=== PATIENT | female | born 1965 | race Caucasian/White ===

== ENCOUNTER 2016-10-26 12:02 | Day surgery (SDC) | payer OTHER ==
[~2016-10-26] VITALS: Ht 165.1 cm; Wt 85.2 kg
[2016-10-26 13:01] VITALS: BP 109/87; PULSE 91; TEMP 98.1
[2016-10-26] MEDS ORDERED: ZESTRIL 10MG10 MG PO (13:10)
[2016-10-26] MEDS ORDERED: MEVACOR40 MG PO (13:11)
[2016-10-26] MEDS ORDERED: TAMOXIFEN CITRA20 MG PO (13:11)
[2016-10-26] MEDS ORDERED: LEXAPRO 5MG5 MG PO (13:11)
[2016-10-26] MEDS ORDERED: MASON NATURAL1200 MG PO (13:12)
[2016-10-26] MEDS ORDERED: COLACE 100100 MG/CAP PO (13:12)
[2016-10-26] MEDS ORDERED: AMBIEN 5MG TABLE5 MG PO (13:13)
[2016-10-26] MEDS ORDERED: MULTIPLE VITAMI1 CAP PO (13:13)
[2016-10-26] MEDS ORDERED: LUTEIN20 M1 PO (13:14)
[2016-10-26 14:40] VITALS: BP 110/80; PULSE 90; TEMP 98.7
[2016-10-26 14:55] VITALS: BP 116/67; PULSE 79
== END 2016-10-26 15:18 | disposition home or self-care (01) ==
LOC: SDCO 12:02
DX: Z12.11 Encounter for screening for malignant neoplasm of colon (principal); K63.5 Polyp of colon; K57.30 Diverticulosis of large intestine without perforation or abscess without bleeding
CPT/HCPCS: J2250; J2405; J3010; J7030

== ENCOUNTER 2017-07-13 15:23 | Outpatient (RCR) | payer OTHER ==
[~2017-07-13 15:23] MED LIST: AMBIEN 5MG TABLE5 MG PO; COLACE 100100 MG/CAP PO; LEXAPRO 5MG5 MG PO; LUTEIN20 M1 PO; MASON NATURAL1200 MG PO; MEVACOR40 MG PO; MULTIPLE VITAMI1 CAP PO; TAMOXIFEN CITRA20 MG PO; ZESTRIL 10MG10 MG PO
== END 2017-10-11 | disposition home or self-care (01) ==
LOC: MKS.ESL.PT
DX: N81.89 Other female genital prolapse (principal)